=== PATIENT | male | born 1985 | race African-American/Black ===

== ENCOUNTER 2018-03-24 15:48 | Emergency (ER) | payer SELFPAY ==
[~2018-03-24] VITALS: Ht 188 cm; Wt 115.6 kg
[2018-03-24] MEDS ORDERED: MEDDOSEPAK PO (16:38)
[2018-03-24] MEDS ORDERED: AMOXICILLIN875 MG PO (16:42)
[2018-03-24 16:50] VITALS: BP 134/74
== END 2018-03-24 16:50 | disposition home or self-care (01) | DRG 153 ==
LOC: ED 15:48
DX: J02.0 Streptococcal pharyngitis (principal); F17.210 Nicotine dependence, cigarettes, uncomplicated